=== PATIENT | female | born 1940 | race Caucasian/White ===

== ENCOUNTER 2024-03-28 17:49 | Inpatient (IN) | payer MEDICARE ==
[~2024-03-28] VITALS: Ht 149.9 cm; Wt 55.3 kg
[2024-03-28] MEDS ORDERED: NORVASC (18:19)
[2024-03-28] MEDS ORDERED: PARO-154 PO (18:19)
[2024-03-28] MEDS ORDERED: MELA3CAP2 PO (18:19)
[2024-03-28] MEDS ORDERED: PEPCID (18:19)
[2024-03-28] MEDS ORDERED: QUET25TA3 (18:19)
[2024-03-28] MEDS ORDERED: RITALIN (18:19)
[2024-03-28] MEDS ORDERED: NORCO (18:19)
[2024-03-28] MEDS ORDERED: VENLAFAXINE (18:19)
[2024-03-28] MEDS ORDERED: [UNRECOGNIZED DRUG - OTHER] (18:19)
[2024-03-28] MEDS ORDERED: CEFEPIME (18:19)
[2024-03-28] MEDS ORDERED: IRON (18:19)
[2024-03-28] MEDS ORDERED: NITR100C11 PO (18:19)
[2024-03-28] MEDS ORDERED: METFORMIN (18:19)
[2024-03-28] MEDS ORDERED: SYNTHROID (18:19)
[2024-03-28] MEDS ORDERED: TYLENOL (18:19)
[2024-03-28 19:11] VITALS: BP 176/96; TEMP 98.1; O2SAT 98
[2024-03-28] MEDS ORDERED: MAGNESIUM HYDROXIDE 30 ML LIQUID UDC PO PRN (21:15)
[2024-03-28] MEDS ORDERED: ACETAMINOPHEN 325 MG TABLET PO PRN (21:15)
[2024-03-28] MEDS ORDERED: MAG HYDROX/AL HYDROX/SIMETH 30 ML LIQUID UDC PO PRN (21:15)
[2024-03-28] MEDS ORDERED: TEMAZEPAM 7.5 MG CAPSULE PO PRN (21:15)
[2024-03-28] MEDS: CLONAZEPAM 0.5 MG TABLET PO PRN (22:19)
[2024-03-29 07:52] VITALS: BP 126/67; TEMP 98.3; O2SAT 98
[2024-03-29 07:53] LABS: ALANINE AMINOTRANSFERASE 34 U/L (14-59); ALBUMIN 3.2 g/dL (3.4-5.0); ALKALINE PHOSPHATASE 106 U/L (50-136); ASPARTATE AMINOTRANSFERASE 23 U/L (15-37); BILIRUBIN,TOTAL 0.3 mg/dL (0.2-1.0); CALCIUM 8.8 mg/dL (8.5-10.1); CARBON DIOXIDE 21 mmol/L (21-32); CHLORIDE 108 mmol/L (98-107); CREATININE 1.8 mg/dL (0.6-1.3); GLUCOSE 126 mg/dL (74-106); POTASSIUM 4.4 mmol/L (3.5-5.1); SODIUM SERUM 138 mmol/L (136-145); TOTAL PROTEIN, SERUM 7.7 g/dL (6.4-8.2); UREA NITROGEN, BLOOD 47 mg/dL (7-18)
[2024-03-29] MEDS ORDERED: DEXTROSE 50% 50 ML DISP.SYRIN IV PRN (08:15)
[2024-03-29] MEDS ORDERED: NITROFURANTOIN/NITROFURAN MAC 100 MG CAPSULE PO SCH ×2 (09:00)
[2024-03-29] MEDS ORDERED: CEphaleXIN 250 MG CAPSULE PO SCH (09:56)
[2024-03-29] MEDS ORDERED: QUETIAPINE FUMARATE 100 MG TABLET PO SCH (10:00)
[2024-03-29] MEDS ORDERED: QUET300T2 PO (10:33)
[2024-03-29] MEDS ORDERED: PARO40TA4 PO (10:33)
[2024-03-29] MEDS ORDERED: VENL-192 PO (10:33)
[2024-03-29] MEDS: BLOOD SUGAR DIAGNOSTIC 1 EACH STRIP VI SCH (11:30)
[2024-03-29] MEDS: CEphaleXIN 250 MG CAPSULE PO SCH (12:12)
[2024-03-29 16:40] VITALS: BP 141/84; TEMP 98; O2SAT 98
[2024-03-29 20:13] VITALS: BP 146/61; TEMP 98.2; O2SAT 96
[2024-03-29] MEDS: VENLAFAXINE 25 MG TABLET PO SCH (20:28)
[2024-03-29] MEDS: MELATONIN 3 MG TABLET PO SCH (20:29)
[2024-03-29] MEDS: QUETIAPINE FUMARATE 100 MG TABLET PO SCH (20:30)
[2024-03-29] MEDS: INSULIN REGULAR, HUMAN 300 UNIT/3 ML VIAL SQ PRN (20:35)
[2024-03-30 07:48] VITALS: BP 152/68; TEMP 98.1; O2SAT 98
[2024-03-30] MEDS: PAROXETINE HCL 20 MG TABLET PO SCH (08:37)
[2024-03-30 15:53] VITALS: BP 113/81; TEMP 98; O2SAT 98
[2024-03-30 19:59] VITALS: BP 129/74; TEMP 98.1; O2SAT 96
[2024-03-31 07:51] LABS: BASOPHILS % (AUTO) 0.5 % (0.0-2.0); EOSINOPHILS # (AUTO) 0.6 K/uL (0.0-0.7); EOSINOPHILS % (AUTO) 7.3 % (0.0-7.0); HEMATOCRIT 31.7 % (31.2-41.9); HEMOGLOBIN 10.3 g/dL (10.9-14.3); LYMPHOCYTES # (AUTO) 3.3 K/uL (0.8-4.8); LYMPHOCYTES % (AUTO) 40.9 % (20.5-51.5); MEAN CORPUSCULAR HEMOGLOBIN 29.9 uug (24.7-32.8); MEAN CORPUSCULAR HGB CONC 32 g/dL (32.3-35.6); MEAN CORPUSCULAR VOLUME 92.4 fL (75.5-95.3); MONOCYTES # (AUTO) 0.9 K/uL (0.1-1.30); MONOCYTES % (AUTO) 10.9 % (0.0-11.0); NEUTROPHILS # (AUTO) 3.3 K/uL (1.8-8.9); NEUTROPHILS % (AUTO) 40.4 % (38.5-71.5); PLATELET COUNT (AUTO) 213 K/uL (179-408); RED BLOOD CELL COUNT(AUTO) 3.43 MIL/uL (3.63-4.92); RED CELL DISTRIBUTION WIDTH 14.1 % (12.3-17.7); WHITE BLOOD COUNT (AUTO) 8.1 K/uL (3.8-11.8)
[2024-03-31 08:01] LABS: DIFFERENTIAL COMMENT 1
[2024-03-31 08:15] LABS: ALANINE AMINOTRANSFERASE 29 U/L (14-59); ALKALINE PHOSPHATASE 96 U/L (50-136); ASPARTATE AMINOTRANSFERASE 15 U/L (15-37); BILIRUBIN,TOTAL 0.3 mg/dL (0.2-1.0); CALCIUM 8.7 mg/dL (8.5-10.1); CARBON DIOXIDE 23 mmol/L (21-32); CHLORIDE 109 mmol/L (98-107); CREATINE KINASE, TOTAL 67 U/L (26-192); CREATININE 1.9 mg/dL (0.6-1.3); GLUCOSE 116 mg/dL (74-106); MAGNESIUM 2.1 mg/dL (1.8-2.4); PHOSPHOROUS 4.5 mg/dL (2.5-4.9); POTASSIUM 4.5 mmol/L (3.5-5.1); SODIUM SERUM 140 mmol/L (136-145); TOTAL PROTEIN, SERUM 7.3 g/dL (6.4-8.2); UREA NITROGEN, BLOOD 47 mg/dL (7-18)
[2024-03-31 08:28] VITALS: BP 123/65; TEMP 98.4; O2SAT 98
[2024-03-31 10:18] LABS: *BILIRUBIN,URIN NEGATIVE (NEGATIVE); *BLOOD, URINE NEGATIVE (NEGATIVE); *CLARITY,URINE CLEAR (CLEAR); *COLOR,URINE YELLOW (YELLOW); *KETONES,URINE NEGATIVE (NEGATIVE); *PROTEIN,URINE TRACE (NEGATIVE); *UROBILINOGEN,URINE 0.2 E.U./dl (NORMAL); LEUKOCYTE ESTERASE ,URINE 1+ (NEGATIVE); NITRITE, URINE POSITIVE (NEGATIVE); UGLUCOSE NEGATIVE (NEGATIVE)
[2024-03-31 10:43] LABS: BACTERIA,URINE MODERATE /HPF (NONE SEEN); SQUAMOUS EPITHELIAL CELL,UR FEW /HPF (NONE SEEN); WBC,URINE 20-50 /HPF (0-3)
[2024-03-31 15:27] VITALS: BP 146/68; TEMP 98.2; O2SAT 98
[2024-03-31 20:17] VITALS: BP 120/64; TEMP 98.1; O2SAT 96
[2024-04-01 06:10] LABS: PTH, INTACT 24 pg/mL (15-65)
[2024-04-01] MEDS: LEVOTHYROXINE SODIUM 25 MCG TABLET PO SCH (06:30)
[2024-04-01 07:52] VITALS: BP 134/77; TEMP 98; O2SAT 98
[2024-04-01 14:08] LABS: A/G RATIO 0.9 (0.7-1.7); ALBUMIN 3.1 g/dL (2.9-4.4); ALPHA-1-GLOBULIN 0.2 g/dL (0.0-0.4); ALPHA-2-GLOBULIN 0.6 g/dL (0.4-1.0); GAMMA GLOBULIN 1.8 g/dL (0.4-1.8); GLOBULIN, TOTAL 3.6 g/dL (2.2-3.9); M-SPIKE Not Observed g/dL (Not Observed)
[2024-04-01 15:18] VITALS: BP 109/61; TEMP 98; O2SAT 98
[2024-04-01 20:14] VITALS: BP 126/75; TEMP 97.8; O2SAT 97
[2024-04-02 07:47] VITALS: BP 111/68; TEMP 97.6; O2SAT 97
[2024-04-02 16:00] VITALS: BP 134/93; TEMP 98.6; O2SAT 97
[2024-04-02 20:00] VITALS: BP 140/85; TEMP 97.5; O2SAT 95
[2024-04-03 08:05] VITALS: BP 161/72; TEMP 98; O2SAT 96
[2024-04-03 15:25] VITALS: BP 119/64; TEMP 98; O2SAT 96
[2024-04-03 20:00] VITALS: BP 157/79; TEMP 98.1; O2SAT 100
[2024-04-03] MEDS: AMOXICILLIN-CLAVUL 500-125MG TABLET PO SCH (21:32)
[2024-04-04 08:26] VITALS: BP 155/74; TEMP 97.9; O2SAT 97
[2024-04-04 17:05] VITALS: BP 113/69; TEMP 97.9; O2SAT 97
[2024-04-04 23:42] VITALS: BP 138/64; TEMP 97.9; O2SAT 98
[2024-04-05 08:37] VITALS: BP 121/58; TEMP 98.1; O2SAT 98
[2024-04-05 16:01] VITALS: BP 123/63; TEMP 98; O2SAT 98
[2024-04-05 20:11] VITALS: BP 132/78; TEMP 98.1; O2SAT 95
[2024-04-06 07:49] VITALS: BP 148/72; TEMP 98.2; O2SAT 98
[2024-04-06 15:59] VITALS: BP 134/64; TEMP 97.6; O2SAT 99
[2024-04-06 20:33] VITALS: BP 155/69; TEMP 97.3; O2SAT 97
[2024-04-07 09:02] VITALS: BP 149/66; TEMP 98; O2SAT 99
[2024-04-07 15:50] VITALS: BP 136/61; TEMP 98; O2SAT 99
[2024-04-07 19:55] VITALS: BP 142/66; TEMP 98.1; O2SAT 98
[2024-04-08 07:41] VITALS: BP 142/70; TEMP 98; O2SAT 96
[2024-04-08 15:42] VITALS: BP 152/73; TEMP 98; O2SAT 96
[2024-04-08 17:24] VITALS: BP 144/68; TEMP 98; O2SAT 98
[2024-04-08 20:00] VITALS: BP 155/90; TEMP 98.3; O2SAT 93
[2024-04-09 07:58] VITALS: BP 139/79; TEMP 98; O2SAT 93
[2024-04-09 11:17] LABS: CALCIUM 8.7 mg/dL (8.5-10.1); CARBON DIOXIDE 27 mmol/L (21-32); CHLORIDE 103 mmol/L (98-107); CREATININE 1.7 mg/dL (0.6-1.3); GLUCOSE 157 mg/dL (74-106); MAGNESIUM 2.1 mg/dL (1.8-2.4); POTASSIUM 4.9 mmol/L (3.5-5.1); SODIUM SERUM 138 mmol/L (136-145); UREA NITROGEN, BLOOD 46 mg/dL (7-18)
[2024-04-09 15:18] VITALS: BP 127/74; TEMP 98; O2SAT 96
[2024-04-09 20:00] VITALS: BP 152/83; TEMP 98.5; O2SAT 96
[2024-04-10 07:30] VITALS: BP 129/79; TEMP 98; O2SAT 99
[2024-04-10 16:24] VITALS: BP 164/84; TEMP 98; O2SAT 98
[2024-04-10 20:00] VITALS: BP 164/87; TEMP 98.1; O2SAT 97
[2024-04-10 20:32] VITALS: BP 142/84
[2024-04-11 08:21] VITALS: BP 147/73; TEMP 98.3; O2SAT 98
[2024-04-11 17:41] VITALS: BP 171/82; TEMP 98.1; O2SAT 97
[2024-04-11 20:00] VITALS: BP 163/78; TEMP 98.2; O2SAT 99
[2024-04-12 07:56] VITALS: BP 162/77; TEMP 97.8; O2SAT 98
[2024-04-12] MEDS: AMLODIPINE 2.5 MG TABLET PO SCH (08:38)
[2024-04-12 16:44] VITALS: BP 171/85; TEMP 97.9; O2SAT 98
[2024-04-12 20:39] VITALS: BP 161/82; TEMP 98.1; O2SAT 96
[2024-04-13] MEDS ORDERED: AMLODIPINE 2.5 MG TABLET PO SCH (09:00)
[2024-04-13 10:16] VITALS: BP 128/64; TEMP 98.2; O2SAT 99
== END 2024-04-13 16:15 | DRG 881 ==
LOC: ER 17:50 → GPS 18:15
PROVIDERS: ADMIT Psychiatry & Neurology Psychiatry; ATTEND Nurse Practitioner Family
DX: F32.9 Major depressive disorder, single episode, unspecified (principal); N17.9 Acute kidney failure, unspecified; N18.9 Chronic kidney disease, unspecified; E44.1 Mild protein-calorie malnutrition; R45.851 Suicidal ideations; N39.0 Urinary tract infection, site not specified; E88.09 Other disorders of plasma-protein metabolism, not elsewhere classified; Z91.83 Wandering in diseases classified elsewhere; Z87.440 Personal history of urinary (tract) infections; R32 Unspecified urinary incontinence; M89.8X9 Other specified disorders of bone, unspecified site; I12.9 Hypertensive chronic kidney disease with stage 1 through stage 4 chronic kidney disease, or unspecified chronic kidney disease; E11.22 Type 2 diabetes mellitus with diabetic chronic kidney disease; F41.9 Anxiety disorder, unspecified; Z79.899 Other long term (current) drug therapy; Z79.84 Long term (current) use of oral hypoglycemic drugs; H91.93 Unspecified hearing loss, bilateral; R41.9 Unspecified symptoms and signs involving cognitive functions and awareness
CPT/HCPCS: 36415; 73501; 76775; 83735; 83970; 84100; 84155; 84165; 84443; 85025; J1815